=== PATIENT | male | born 1950 | race Caucasian/White ===

== ENCOUNTER 2018-02-28 08:12 | Inpatient (IN) | payer MEDICARE ==
[~2018-02-28] VITALS: Ht 172.7 cm; Wt 90.7 kg
[~2018-02-28 08:12] MED LIST: GLIP10TA10 PO
[2018-02-28] MEDS ORDERED: SODIUM CHLORIDE 0.9% 1,000 ML IV ONE (08:41)
[2018-02-28 09:12] LABS: BASOPHILS % 0.7 % (0.0-2.0); EOSINOPHILS % 2.7 % (0.0-5.0); HEMATOCRIT. 49.7 % (42.0-52.0); HEMOGLOBIN. 17.2 g/dL (14.0-18.0); LYMPHOCYTES % 19.7 % (20.0-50.0); MEAN CORPUSCULAR HEMOGLOBIN 32.6 pg (28.0-32.0); MEAN CORPUSCULAR VOLUME 93.8 fL (80.0-94.0); MEAN PLATELET VOLUME 8.5 fl (7.4-10.4); MONOCYTES % 8.4 % (2.0-8.0); NEUTROPHILS % 68.5 % (40.0-76.0); PLATELET 213 x1000/uL (130-400); RED CELL DISTRIBUTION WIDTH 13.1 % (11.6-14.6)
[2018-02-28 09:19] LABS: CHLORIDE 106 mEq/L (98-107)
[2018-02-28 09:20] LABS: INR 1.1; PROTHROMBIN TIME 10.7 sec (9.1-11.1)
[2018-02-28 09:24] LABS: ETHANOL BLOOD < 10 mg/dL
[2018-02-28 12:00] VITALS: BP 119/77
[2018-02-28] MEDS ORDERED: DEXTROSE 50% WATER 50ML SYRINGE IV PRN (12:45)
[2018-02-28 13:00] VITALS: BP 119/77
[2018-02-28 16:00] VITALS: BP 143/77
[2018-02-28] MEDS: BLOOD SUGAR DIAGNOSTIC STRIP TEST SCH ×2 (17:10→20:49)
[2018-02-28] MEDS: INSULIN LISPRO 100 UNITS/ML SUBCUT SCH ×2 (18:26→21:01)
[2018-02-28 20:00] VITALS: BP 123/72
[2018-02-28] MEDS ORDERED: ONDANSETRON HCL 4MG/2ML INJ IV PRN (21:30)
[2018-02-28] MEDS ORDERED: CLONIDINE 0.1MG TABLET PO PRN (21:30)
[2018-02-28] MEDS ORDERED: ACETAMINOPHEN 325MG TABLET PO PRN (21:30)
[2018-02-28] MEDS ORDERED: TEMAZEPAM 15MG CAPSULE PO PRN (21:30)
[2018-02-28] MEDS ORDERED: GUAIFENESIN 200MG/10ML SUGAR FREE UDC PO PRN (21:30)
[2018-02-28 22:00] VITALS: BP_SYST 116; BP_SYST 118; BP_DIAS 73; BP_DIAS 77
[2018-02-28] MEDS: SODIUM CHLORIDE 0.9% INJ 3ML FLUSH IVF SCH (22:15)
[2018-03-01] VITALS: BP 135/78
[2018-03-01 04:00] VITALS: BP 138/93
[2018-03-01] MEDS: SODIUM CHLORIDE 0.9% INJ 3ML FLUSH IVF SCH ×3 (06:11→21:35)
[2018-03-01] MEDS: INSULIN LISPRO 100 UNITS/ML SUBCUT SCH ×4 (06:16→21:00)
[2018-03-01] MEDS: BLOOD SUGAR DIAGNOSTIC STRIP TEST SCH ×4 (06:28→21:32)
[2018-03-01 08:00] VITALS: BP 128/81
[2018-03-01] MEDS: GLIPIZIDE 10MG TABLET PO SCH ×2 (08:18→16:36)
[2018-03-01 09:22] LABS: BASOPHILS % 0.9 % (0.0-2.0); EOSINOPHILS % 5.8 % (0.0-5.0); HEMATOCRIT. 44.4 % (42.0-52.0); HEMOGLOBIN. 15.2 g/dL (14.0-18.0); MEAN CORPUSCULAR HEMOGLOBIN 32.5 pg (28.0-32.0); MEAN CORPUSCULAR VOLUME 94.8 fL (80.0-94.0); MEAN PLATELET VOLUME 9.2 fl (7.4-10.4); MONOCYTES % 8.2 % (2.0-8.0); NEUTROPHILS % 49.1 % (40.0-76.0); PLATELET 215 x1000/uL (130-400); RED BLOOD CELL COUNT 4.68 mill/uL (4.7-6.1); RED CELL DISTRIBUTION WIDTH 12.9 % (11.6-14.6)
[2018-03-01 09:29] LABS: CHLORIDE 105 mEq/L (98-107)
[2018-03-01 12:00] VITALS: BP 123/72
[2018-03-01 16:48] VITALS: BP 136/92
[2018-03-01 20:00] VITALS: BP 107/61
[2018-03-02] VITALS: BP 137/80
[2018-03-02 04:00] VITALS: BP 149/74
[2018-03-02] MEDS: BLOOD SUGAR DIAGNOSTIC STRIP TEST SCH ×4 (05:34→20:35)
[2018-03-02] MEDS: SODIUM CHLORIDE 0.9% INJ 3ML FLUSH IVF SCH ×3 (05:36→21:06)
[2018-03-02] MEDS: INSULIN LISPRO 100 UNITS/ML SUBCUT SCH ×4 (05:37→20:40)
[2018-03-02 08:00] VITALS: BP 127/79
[2018-03-02] MEDS: GLIPIZIDE 10MG TABLET PO SCH ×2 (08:15→17:21)
[2018-03-02 12:00] VITALS: BP 115/85
[2018-03-02 16:00] VITALS: BP 124/89
[2018-03-02 20:00] VITALS: BP 133/75
[2018-03-03] VITALS: BP 108/71
[2018-03-03 04:00] VITALS: BP 104/55
[2018-03-03] MEDS: BLOOD SUGAR DIAGNOSTIC STRIP TEST SCH ×4 (05:44→21:12)
[2018-03-03] MEDS: SODIUM CHLORIDE 0.9% INJ 3ML FLUSH IVF SCH ×3 (05:50→21:13)
[2018-03-03] MEDS: INSULIN LISPRO 100 UNITS/ML SUBCUT SCH ×4 (05:50→21:00)
[2018-03-03 08:00] VITALS: BP 130/88
[2018-03-03] MEDS: GLIPIZIDE 10MG TABLET PO SCH ×2 (08:27→17:52)
[2018-03-03 12:11] VITALS: BP 101/61
[2018-03-03 16:36] VITALS: BP 127/84
[2018-03-04] VITALS: BP 143/78
[2018-03-04 04:00] VITALS: BP 126/71
[2018-03-04] MEDS: SODIUM CHLORIDE 0.9% INJ 3ML FLUSH IVF SCH ×3 (06:45→21:20)
[2018-03-04] MEDS: BLOOD SUGAR DIAGNOSTIC STRIP TEST SCH ×4 (06:45→21:00)
[2018-03-04] MEDS: INSULIN LISPRO 100 UNITS/ML SUBCUT SCH ×4 (06:45→21:00)
[2018-03-04 08:00] VITALS: BP 120/85
[2018-03-04] MEDS: GLIPIZIDE 10MG TABLET PO SCH ×2 (09:12→17:32)
[2018-03-04 12:00] VITALS: BP 150/66
[2018-03-04 16:00] VITALS: BP 143/93
[2018-03-04 20:00] VITALS: BP 121/66
[2018-03-05] VITALS: BP 142/74
[2018-03-05 04:00] VITALS: BP 103/64
[2018-03-05] MEDS: BLOOD SUGAR DIAGNOSTIC STRIP TEST SCH ×4 (06:17→21:37)
[2018-03-05] MEDS: INSULIN LISPRO 100 UNITS/ML SUBCUT SCH ×4 (06:17→21:00)
[2018-03-05] MEDS: SODIUM CHLORIDE 0.9% INJ 3ML FLUSH IVF SCH ×3 (06:17→21:38)
[2018-03-05 08:00] VITALS: BP 143/93
[2018-03-05] MEDS: GLIPIZIDE 10MG TABLET PO SCH ×2 (10:11→17:00)
[2018-03-05 12:00] VITALS: BP_SYST 128; BP_SYST 144; BP_DIAS 77; BP_DIAS 86
[2018-03-05 16:00] VITALS: BP 135/87
[2018-03-05 20:00] VITALS: BP 128/77
[2018-03-06] VITALS: BP 103/77
[2018-03-06 04:00] VITALS: BP 135/66
[2018-03-06] MEDS: SODIUM CHLORIDE 0.9% INJ 3ML FLUSH IVF SCH (06:35)
[2018-03-06] MEDS: INSULIN LISPRO 100 UNITS/ML SUBCUT SCH (06:36)
[2018-03-06] MEDS: BLOOD SUGAR DIAGNOSTIC STRIP TEST SCH (06:36)
[2018-03-06 08:00] VITALS: BP 157/95
[2018-03-06] MEDS: GLIPIZIDE 10MG TABLET PO SCH (08:27)
[2018-03-06 11:17] VITALS: BP 125/77
[2018-03-06 11:34] VITALS: BP 125/77
== END 2018-03-06 12:20 | disposition home or self-care (01) | DRG 74 ==
LOC: ER 08:12 → 8WST 10:29 → EDBEDREQ 10:34 → EDBEDREQSVC 10:34 → EDBEDREQTM 10:34 → ENRESERV 10:59
PROVIDERS: ADMIT Internal Medicine; ATTEND Internal Medicine
DX: G90.8 Other disorders of autonomic nervous system (principal); G80.9 Cerebral palsy, unspecified; Z59.0 Homelessness; R29.6 Repeated falls; E11.65 Type 2 diabetes mellitus with hyperglycemia; E78.00 Pure hypercholesterolemia, unspecified; I10 Essential (primary) hypertension; Z79.84 Long term (current) use of oral hypoglycemic drugs
CPT/HCPCS: 36415; 71045; 80048; 82140; 82962; 84484; 93005; 93306; 97162; 97166; 97530; 99285; C1893; G0482; J1815; J7030